=== PATIENT | male | born 1995 | race Caucasian/White ===

== ENCOUNTER 2019-01-18 01:00 | Emergency (ER) | payer OTHER ==
[~2019-01-18] VITALS: Ht 170.2 cm; Wt 74.8 kg
[2019-01-18 01:10] VITALS: BP 137/76
--- NOTE | 2019-01-18 01:10 | ER.PDOC ---
General Chief Complaint: Requesting Medical Care Stated Complaint: R HAND INJURY Time seen by MD: 01:09 Source: patient Exam Limitations: no limitations History of Present Illness Initial Comments Right hand pain after hitting a wall. Occurred: just prior to arrival Where: home Severity: moderate Context: direct blow Modifying Factors: pain on movement Allergies: Coded Allergies: Penicillins (Verified Allergy, Unknown, Anaphylaxis Shock, 01/18/19) Review of Systems Constitutional: no symptoms reported Respiratory: no symptoms reported Cardiovascular: no symptoms reported Gastrointestinal: no symptoms reported Genitourinary: no symptoms reported Musculoskeletal: see HPI All Other Systems: Reviewed and Negative Physical Exam General Appearance: Alert, No Apparent Distress Hand: tenderness (lateral aspect of right hand) Neuro: sensation nml, motor nml Vascular: no vascular compromise Tendons: tendon function nml Forearm/Elbow/Arm: uninjured above wrist Head/ENT: nml inspection, pharynx nml Neck/Back: nml inspection, non-tender Resp/CVS: no resp distress, lungs clear, heart sounds nml, reg. rate & rhythm Abdomen: non-tender, no organomegaly Results/Orders Results/Orders Orders - AD LOMELI MD Xr Hand Rt (01/18/19 01:08) Vital Signs Date Time Temp Pulse Resp B/P (MAP) Pulse Ox O2 Delivery O2 Flow Rate FiO2 01/18/19 01:10 98.1 76 18 137/76 (96) 100 Room Air 98.1 01/18/19 01:10 98.1 76 18 100 Room Air 98.1 EKG/XRAY/CT/US XRAY Comments: Fracture right 5th metacarpal Departure Time of Disposition: 01:21 Disposition: 01 HOME, SELF-CARE Impression: Primary Impression: Metacarpal bone fracture Condition: Stable Referrals: PCP,UNKNOWN (PCP) PRIMARY CARE PROVIDER Additional Instructions: Tramadol Ibuprofen Ice F/U with Dr. Ferreira this week. Call for appointment. Duration or Time Spent with Pa: 30 mins Problem Qualifiers Primary Impression: Metacarpal bone fracture Encounter type: initial encounter Metacarpal bone: fifth Fracture type: closed Metacarpal location: unspecified portion of metacarpal Fracture alignment: displaced Laterality: right Qualified Codes: S62.306A - Unspecified fracture of fifth metacarpal bone, right hand, initial encounter for closed fracture AD LOMELI MD Jan 18, 2019 01:10
[2019-01-18] MEDS ORDERED: MOTRIN ONE (01:19)
[2019-01-18] MEDS ORDERED: MOTRIN PO STA (01:20)
--- NOTE | 2019-01-18 01:25 | DIREP ---
PROCEDURE:XRAY HAND MIN 3 VW-RT COMPARISON:None. INDICATIONS:Pain after hitting a wall FINDINGS: BONES:Fracture of the 5th metacarpal neck with volar angulation. JOINTS:Normal. SOFT TISSUES:Normal. OTHER:No additional findings. CONCLUSION:Fracture 5th metacarpal neck with volar angulation. Dictated by: Jame Grande M.D. on 01/18/2019 at 01:20 AM
[2019-01-18 01:28] VITALS: BP 125/61
--- NOTE | 2019-01-18 01:35 | NUR ---
WRIST SPLINT APPLIED TO RIGHT HAND
[2019-01-18 01:42] VITALS: BP 125/61
== END 2019-01-18 01:41 | disposition home or self-care (01) ==
LOC: ER 01:00
DX: S62.337A Displaced fracture of neck of fifth metacarpal bone, left hand, initial encounter for closed fracture (principal); Z88.0 Allergy status to penicillin; W22.01XA Walked into wall, initial encounter; Y93.89 Activity, other specified; Y92.098 Other place in other non-institutional residence as the place of occurrence of the external cause; Y99.8 Other external cause status
CPT/HCPCS: 29125; 99284; 73130-RT